=== PATIENT | female | born 1990 | race Caucasian/White ===

== ENCOUNTER 2020-10-26 12:30 | Emergency (ER) | payer OTHER ==
[~2020-10-26] VITALS: Ht 165.1 cm; Wt 84.1 kg
[2020-10-26 14:20] VITALS: BP 101/61
== END 2020-10-26 14:46 | disposition home or self-care (01) ==
LOC: EMS 12:30
DX: K08.89 Other specified disorders of teeth and supporting structures (principal); F17.210 Nicotine dependence, cigarettes, uncomplicated
CPT/HCPCS: 99283